=== PATIENT | male | born 1975 | race Two or more races ===

== ENCOUNTER 2019-08-30 18:30 | Inpatient (IN) | payer OTHER ==
[~2019-08-30] VITALS: Ht 177.8 cm; Wt 68.6 kg
[2019-08-30] MEDS ORDERED: NAPR250T4 PO (18:47)
[2019-08-30 19:30] LABS: BASOPHILS % (AUTO) 0.3 % (0.0-2.0); EOSINOPHILS % (AUTO) 2.8 % (1.0-6.0); HEMATOCRIT 47.4 % (41-53); LYMPHOCYTES # (AUTO) 1.8 K/uL (1.0-4.8); LYMPHOCYTES % (AUTO) 22.6 % (22.0-44.0); MEAN CORPUSCULAR HEMOGLOBIN 31.4 pg (26.0-34.0); MEAN CORPUSCULAR HGB CONC 33.8 G/dL (31.0-37.0); MEAN CORPUSCULAR VOLUME 93 fL (80-100); MONOCYTES # (AUTO) 0.6 K/uL (0.1-1.0); MONOCYTES % (AUTO) 7.4 % (2.0-9.0); NEUTROPHILS # (AUTO) 5.2 K/uL (1.8-7.7); NEUTROPHILS % (AUTO) 66.9 % (40.0-70.0); PLATELET COUNT (AUTO) 278 K/uL (150-450); RED CELL DISTRIBUTION WIDTH 13.1 % (11.5-14.5)
[2019-08-30 19:41] LABS: ANION GAP 9 mmol/L (8-16); CALCIUM, TOTAL 8.6 mg/dL (8.8-10.5); CARBON DIOXIDE 29 mmol/L (22-29); CHLORIDE 105 mmol/L (98-107); CREATININE 0.96 mg/dL (0.60-1.30); GLOMERULAR FILTR. RATE CALC > 60 mL/min (>60); GLUCOSE,RANDOM 84 mg/dL (70-110); POTASSIUM 4.2 mmol/L (3.5-5.1); SODIUM SERUM 143 mmol/L (136-145); UREA NITROGEN, BLOOD 12 mg/dL (7-18)
[2019-08-30] MEDS ORDERED: ONDANSETRON HCL 4 MG/2 ML VIAL IVP PRN ×2 (20:00→20:15)
[2019-08-30] MEDS ORDERED: ACETAMINOPHEN 325 MG TABLET PO PRN ×2 (20:00→20:15)
[2019-08-30] MEDS ORDERED: ALBUTEROL SULFATE 2.5 MG/0.5 ML NEB SOLUTION NEB PRN (20:15)
[2019-08-30] MEDS ORDERED: IPRATROPIUM BROMIDE 0.5 MG/2.5 ML NEB SOLUTION NEB PRN (20:15)
[2019-08-30] MEDS ORDERED: BISACODYL 10 MG RECTAL RECTAL SUPPOSITORY PR PRN (20:15)
[2019-08-30] MEDS ORDERED: MAGNESIUM HYDROXIDE SUSPENSION 30 ML UDCUP PO PRN (20:15)
[2019-08-30] MEDS ORDERED: ZOLPIDEM TARTRATE 5 MG TABLET PO PRN (20:15)
[2019-08-30] MEDS: FAMOTIDINE 20 MG TABLET PO SCH (20:56)
[2019-08-30] MEDS: DOCUSATE SODIUM 100 MG CAPSULE PO SCH (20:56)
[2019-08-30 23:10] VITALS: BP 129/64
[2019-08-30] MEDS: HEPARIN SODIUM,PORCINE 5,000 UNITS/ML VIAL SQ SCH (23:41)
[2019-08-31] MEDS ORDERED: INFLUENZA VIRUS VACCINE QVS 2019-20 (3YR+)/PF 60 MCG/0.5 ML SYRINGE IM ONE (04:30)
[2019-08-31 04:36] VITALS: BP 122/66
[2019-08-31 08:11] VITALS: BP 108/60
[2019-08-31] MEDS: DOCUSATE SODIUM 100 MG CAPSULE PO SCH ×2 (09:11→20:10)
[2019-08-31] MEDS: FAMOTIDINE 20 MG TABLET PO SCH ×2 (09:11→20:10)
[2019-08-31] MEDS: HEPARIN SODIUM,PORCINE 5,000 UNITS/ML VIAL SQ SCH ×3 (09:14→23:32)
[2019-08-31] MEDS ORDERED: SODIUM CHLORIDE 3% 15 ML NEB SOLUTION NEB ONE ×2 (09:37→14:34)
[2019-08-31 11:21] VITALS: BP 129/56
[2019-08-31 16:26] VITALS: BP 136/72
[2019-08-31 20:00] VITALS: BP 121/82
[2019-09-01 05:10] VITALS: BP 116/70
[2019-09-01 06:08] LABS: HIV 1-2 SCREEN 4TH GEN W/RFLX Non Reactive (Non Reactive)
[2019-09-01 08:00] VITALS: BP 122/64
[2019-09-01] MEDS: DOCUSATE SODIUM 100 MG CAPSULE PO SCH ×2 (08:58→20:17)
[2019-09-01] MEDS: FAMOTIDINE 20 MG TABLET PO SCH ×2 (08:58→20:18)
[2019-09-01] MEDS: HEPARIN SODIUM,PORCINE 5,000 UNITS/ML VIAL SQ SCH ×2 (08:58→17:30)
[2019-09-01 13:41] VITALS: BP 127/69
[2019-09-01 16:35] VITALS: BP 106/70
[2019-09-01 20:53] VITALS: BP 114/72
[2019-09-02] MEDS: HEPARIN SODIUM,PORCINE 5,000 UNITS/ML VIAL SQ SCH ×3 (00:37→15:51)
[2019-09-02 04:56] VITALS: BP 117/70
[2019-09-02 07:46] VITALS: BP 119/65
[2019-09-02] MEDS: DOCUSATE SODIUM 100 MG CAPSULE PO SCH ×2 (09:26→20:01)
[2019-09-02] MEDS: FAMOTIDINE 20 MG TABLET PO SCH ×2 (09:27→20:01)
[2019-09-02 15:27] VITALS: BP 117/73
[2019-09-02 19:32] VITALS: BP 124/72
[2019-09-03 00:06] LABS: QUANTIFERON+, Nil Value 0.06 IU/mL; QUANTIFERON+,Mitogen Value >10.00 IU/mL; QUANTIFERON+,TB1 Antigen Value 1.16 IU/mL; QUANTIFERON, TB GOLD PLUS Positive (Negative)
[2019-09-03] MEDS: HEPARIN SODIUM,PORCINE 5,000 UNITS/ML VIAL SQ SCH ×3 (00:27→16:56)
[2019-09-03 03:46] VITALS: BP 109/65
[2019-09-03] MEDS: FAMOTIDINE 20 MG TABLET PO SCH ×2 (08:06→21:00)
[2019-09-03] MEDS: DOCUSATE SODIUM 100 MG CAPSULE PO SCH ×3 (08:07→21:00)
[2019-09-03 08:26] VITALS: BP 124/70
[2019-09-03 17:21] VITALS: BP 115/69
[2019-09-03 21:15] VITALS: BP 124/61
[2019-09-04 05:12] VITALS: BP 121/61
[2019-09-04] MEDS: FAMOTIDINE 20 MG TABLET PO SCH ×2 (08:34→21:09)
[2019-09-04] MEDS: DOCUSATE SODIUM 100 MG CAPSULE PO SCH ×2 (08:34→21:09)
[2019-09-04] MEDS: HEPARIN SODIUM,PORCINE 5,000 UNITS/ML VIAL SQ SCH ×3 (08:34→16:22)
[2019-09-04 20:43] VITALS: BP 111/68
[2019-09-05] MEDS: HEPARIN SODIUM,PORCINE 5,000 UNITS/ML VIAL SQ SCH ×3 (00:01→16:28)
[2019-09-05 05:00] VITALS: BP 109/70
[2019-09-05 08:23] VITALS: BP 109/70
[2019-09-05] MEDS: DOCUSATE SODIUM 100 MG CAPSULE PO SCH ×2 (08:38→19:48)
[2019-09-05] MEDS: FAMOTIDINE 20 MG TABLET PO SCH ×2 (08:43→19:48)
[2019-09-05 16:07] VITALS: BP 119/79
[2019-09-05 19:45] VITALS: BP 139/94
[2019-09-06] MEDS: HEPARIN SODIUM,PORCINE 5,000 UNITS/ML VIAL SQ SCH ×3 (03:28→15:15)
[2019-09-06 04:43] VITALS: BP 104/58
[2019-09-06 08:00] VITALS: BP 122/70
[2019-09-06] MEDS: DOCUSATE SODIUM 100 MG CAPSULE PO SCH ×2 (08:56→20:10)
[2019-09-06] MEDS: FAMOTIDINE 20 MG TABLET PO SCH ×2 (08:56→20:10)
[2019-09-06 15:00] VITALS: BP 120/75
[2019-09-06 20:52] VITALS: BP 119/81
[2019-09-06] MEDS ORDERED: SODIUM CHLORIDE 3% 15 ML NEB SOLUTION NEB ONE (21:32)
[2019-09-07] MEDS: HEPARIN SODIUM,PORCINE 5,000 UNITS/ML VIAL SQ SCH ×4 (00:43→22:25)
[2019-09-07 05:10] VITALS: BP 123/72
[2019-09-07 08:01] VITALS: BP 122/68
[2019-09-07] MEDS: DOCUSATE SODIUM 100 MG CAPSULE PO SCH ×2 (08:01→20:06)
[2019-09-07] MEDS: FAMOTIDINE 20 MG TABLET PO SCH ×2 (08:01→20:06)
[2019-09-07 15:46] VITALS: BP 121/70
[2019-09-07 20:32] VITALS: BP 138/68
[2019-09-08 07:40] VITALS: BP 120/67
[2019-09-08] MEDS: FAMOTIDINE 20 MG TABLET PO SCH ×2 (08:38→22:30)
[2019-09-08] MEDS: DOCUSATE SODIUM 100 MG CAPSULE PO SCH ×2 (08:38→22:30)
[2019-09-08] MEDS: HEPARIN SODIUM,PORCINE 5,000 UNITS/ML VIAL SQ SCH ×3 (08:42→22:30)
[2019-09-08 15:20] VITALS: BP 146/86
[2019-09-08 20:45] VITALS: BP 112/64
[2019-09-09 06:28] VITALS: BP 114/66
[2019-09-09] MEDS: FAMOTIDINE 20 MG TABLET PO SCH (08:08)
[2019-09-09] MEDS: DOCUSATE SODIUM 100 MG CAPSULE PO SCH (08:08)
[2019-09-09] MEDS: HEPARIN SODIUM,PORCINE 5,000 UNITS/ML VIAL SQ SCH (08:08)
[2019-09-09 08:17] VITALS: BP 113/72
== END 2019-09-09 10:55 | DRG 179 ==
LOC: EMS 18:30 → 5N 20:30 → 6S 08-31 16:46 → UNDODISIN 09-01 18:29 → 6S 09-02 08:54
PROVIDERS: ADMIT Hospitalist; ATTEND Hospitalist
DX: A15.9 Respiratory tuberculosis unspecified (principal); Z87.891 Personal history of nicotine dependence; Z28.21 Immunization not carried out because of patient refusal
CPT/HCPCS: 86480; 87015; 87206; 87389; 87556; 87798; 94640; J1644